=== PATIENT | female | born 1950 | race African-American/Black ===

== ENCOUNTER → 2017-05-02 | Outpatient (CLI) | payer OTHER ==
[~2017-05-02] MED LIST: ACETAMINOPHEN325 M1 PO; ALEVE220 MG PO; DIOVAN HCT 3201 EAC1 PO; FOLIC ACID 1 MG1 MG PO; GLUCOPHAGE500 MG PO; METHOTREXATE PO; MULTIVITAMINS PO; NORVASC 5 MG TAB5 MG PO; NYSTATIN15 GM TP; TOPROL XL200 MG PO; VYTORIN 10-201 EACH PO
== END ==
LOC: RAD 01:17
DX: Z12.31 Encounter for screening mammogram for malignant neoplasm of breast (principal)

== ENCOUNTER → 2018-05-19 | Outpatient (CLI) | payer OTHER | LOC: RAD 01:41 | DX: Z12.31 Encounter for screening mammogram for malignant neoplasm of breast (principal); Z85.3 Personal history of malignant neoplasm of breast ==

== ENCOUNTER → 2019-07-14 | Outpatient (CLI) | payer OTHER | LOC: BC 08:29 | DX: Z12.31 Encounter for screening mammogram for malignant neoplasm of breast (principal) ==

== ENCOUNTER → 2020-07-18 | Outpatient (CLI) | payer OTHER | LOC: BC 13:15 | PROVIDERS: ATTEND Family Medicine | DX: Z12.31 Encounter for screening mammogram for malignant neoplasm of breast (principal); R92.1 Mammographic calcification found on diagnostic imaging of breast ==